=== PATIENT | male | born 1995 | race Caucasian/White ===

== ENCOUNTER 2019-05-01 18:35 | Emergency (ER) | payer OTHER ==
[~2019-05-01] VITALS: Ht 182.9 cm; Wt 78.5 kg
[2019-05-01 19:52] VITALS: BP 148/75; Ht 182.9 cm; Wt 78.5 kg
== END 2019-05-01 20:25 | disposition home or self-care (01) ==
LOC: ED 18:35
DX: S39.011A Strain of muscle, fascia and tendon of abdomen, initial encounter (principal); X50.0XXA Overexertion from strenuous movement or load, initial encounter; Y93.89 Activity, other specified; Y92.39 Other specified sports and athletic area as the place of occurrence of the external cause; Y99.8 Other external cause status